=== PATIENT | male | born 1995 | race African-American/Black ===

== ENCOUNTER 2024-05-23 13:09 | Outpatient (CLI) | payer BC, SELFPAY ==
--- NOTE | ~2024-05-23 | MR_ITS ---
EXAMINATION: MR knee LT wo con DATE: 05/23/2024 13:42 INDICATION: Left knee pain. Internal derangement. TECHNIQUE: Magnetic resonance imaging (MRI) of the left knee was performed without intravenous contra st. Sequences included axial PD-weighted FS FSE, coronal PD-weighted FSE and PD-weighted FS FSE, sagi ttal PD-weighted FSE, and sagittal T2-weighted FS FSE. COMPARISON: None. FINDINGS: Medial compartment: Medial meniscus is normal. Medial compartment cartilage is normal. Lateral compartment: There is a radial tear of posterior root of lateral meniscus. Lateral compartment cartilage is normal . Patellofemoral compartment: Patellar cartilage is normal. Trochlear cartilage is normal. Ligaments and tendons: There is a complete tear of anterior cruciate ligament. Posterior cruciate ligament is intact. There is edema around medial collateral ligament and fibular collateral ligament, consistent with mild spra ins (grade 1). There is mild patellar tendinopathy. Fluid: There is a moderate-sized knee joint effusion. There is trace fluid in a Lock's cyst. Osseous/other: There is a fracture of posterior aspect of medial tibial plateau without depression with low signal f racture line and edema-like marrow signal intensity. There is edema-like marrow signal intensity in p osterior aspect of lateral tibial condyle and notch of lateral femoral condyle, consistent with contu sions. IMPRESSION: 1. Complete tear of anterior cruciate ligament. 2. Radial tear of posterior root of lateral meniscus. 3. Nondisplaced fracture of posterior aspect of medial tibial plateau. 4. Moderate-sized knee joint effusion. Reviewed, dictated and finalized at location A.
== END 2024-05-23 13:10 | disposition home or self-care (01) ==
LOC: GOSHIMG 13:11
PROVIDERS: PCP Internal Medicine; Visit Provider Family Medicine Sports Medicine
DX: S83.512A Sprain of anterior cruciate ligament of left knee, initial encounter (principal); S83.204A Other tear of unspecified meniscus, current injury, left knee, initial encounter; S82.145A Nondisplaced bicondylar fracture of left tibia, initial encounter for closed fracture; S83.282A Other tear of lateral meniscus, current injury, left knee, initial encounter; X58.XXXA Exposure to other specified factors, initial encounter; M25.462 Effusion, left knee; M23.92 Unspecified internal derangement of left knee
CPT/HCPCS: 73721